=== PATIENT | female | born 1990 | race Caucasian/White ===

== ENCOUNTER 2017-05-03 12:40 | Inpatient (IN) | payer OTHER ==
[~2017-05-03 12:40] MED LIST: CITRIC ACID/SODIUM CITRATE 30 ML UNIT-DOSE CUP PO ONE; ELECTROLYTE-148 SOLN 1,000 ML IV ONE
[2017-05-03 13:29] VITALS: BMI 28.3
[2017-05-03] MEDS: ELECTROLYTE-148 SOLN 1,000 ML IV SCH (14:00)
[2017-05-03] MEDS ORDERED: BENZOCAINE 20% 57 GM BOTTLE TP PRN (14:56)
[2017-05-03] MEDS ORDERED: IBUPROFEN 800 MG/8 ML IJ IVPB PRN (14:56)
[2017-05-03] MEDS ORDERED: METHYLERGONOVINE MALEATE 0.2 MG/1 ML AMP IM PRN (14:56)
[2017-05-03] MEDS ORDERED: WITCH HAZEL 50% (TUCKS) 40 PAD/JAR PAD TP PRN (14:56)
[2017-05-03] MEDS ORDERED: diphenhydrAMINE HCL 25 MG CAPSULE (FP) PO PRN (14:56)
[2017-05-03] MEDS ORDERED: BENZOCAINE 28 GM HEMORRHOIDAL OINTMENT PR PRN (14:56)
[2017-05-03] MEDS ORDERED: OXYTOCIN 20 UNITS in 0.9% NS 1,000 ML IV SCH (15:00)
[2017-05-03 15:04] LABS: URINE MARIJUANA THC NEGATIVE ng/ml (CUTOFF=50)
--- NOTE | 2017-05-03 15:06 | HP ---
Past Medical History - Primary Care Physician PCP:: Jimbo Tate - Admission Chief Complaint: 39,4 weeks, previous c/s , request of c/s History of Present Illness: 27 yo f , edc 05/06/17 with 2 previous c/s . request of repeat c/s. rba discussed History Source: Patient Limitations to Obtaining History: No Limitations - Past Medical History Pulmonary: Yes: Asthma ...: 5 ...Para: 2 ...Term: 2 ...: 0 ...Spon : 2 ...Induced : 0 ...Multiple Gestation: 0 ...LMP: 07/30/16 ... Weeks Gestation by Dates: 39.4 ...EDC by Dates: 05/06/17 Additional OB History: 2 previous c/s and 2 spont ab - Past Surgical History Hx Myomectomy: No Hx Transabdominal Cerclage: No - Smoking History Smoking history: Never smoked Have you smoked in the past 12 months: No Aproximately how many cigarettes per day: 0 - Alcohol/Substance Use Hx Alcohol Use: No - Social History Usual Living Arrangement: Yes: With Spouse History of Recent Travel: No Home Medications - Allergies Allergies/Adverse Reactions: Allergies Allergy/AdvReac Type Severity Reaction Status Date / Time Sulfa (Sulfonamide Allergy Severe Rash Verified 05/03/17 13:29 Antibiotics) [Sulfa(Sulfonamide Antibiotics)] - Home Medications Home Medications: Ambulatory Orders Vit No.130/Iron/FA [ Vitamins] 1 each PO DAILY 03/12/17 Review of Systems - Review of Systems Constitutional: reports: No Symptoms Eyes: reports: No Symptoms HENT: reports: No Symptoms Neck: reports: No Symptoms Cardiovascular: reports: No Symptoms Respiratory: reports: No Symptoms Gastrointestinal: reports: No Symptoms Genitourinary: reports: No Symptoms Breasts: reports: No Symptoms Reported Musculoskeletal: reports: No Symptoms Integumentary: reports: No Symptoms Physical Exam - Maternity Vital Signs: Vital Signs Temperature 98.2 F 05/03/17 13:15 Pulse Rate 101 H 05/03/17 13:15 Respiratory Rate 18 05/03/17 13:15 Blood Pressure 110/65 05/03/17 13:15 O2 Sat by Pulse Oximetry (%) - Abdominal Exam/OB Number of Fetuses: Single Presentation: Vertex Contractions: No Regularity: Irregular Intensity: Unaware Monitor Mode: External Heart Rate Location: [facility] Category: I Accelerations: Uniform Decelerations: None - Vaginal Exam/OB Vaginal Bleediing: No Speculum Exam: No Dilatation (cm): closed Effacement (%): none Amniotic Membrane Status: Intact Presentation: Vertex/Position Station: -3 - Physical Exam Edema: LLE: Trace, RLE: Trace Deep Tendon Reflex Grade: Normal +2 Hemorrhage Risk Assessment - Risk Factors High Risk Factors: Yes: None Risk Score: 0 Risk Level: Low Risk Problem List - Problems (1) Previous section complicating Code(s): O34.219 - MATERNAL CARE FOR UNSP TYPE SCAR FROM PREVIOUS DEL Assessment/Plan for repeat c/s ,risks discussed
[2017-05-03] MEDS ORDERED: ONDANSETRON 4 MG/2 ML VIAL IVPB PRN (15:19)
--- NOTE | 2017-05-03 16:16 | OP ---
DATE OF OPERATION: 05/03/2017 PREOPERATIVE DIAGNOSIS: , 39.4 weeks gestation; previous section, requests a repeat section. POSTOPERATIVE DIAGNOSIS: , 39.4 weeks gestation; previous section, requests a repeat section. PROCEDURE: Repeat low-segment transverse section. SURGEON: Nanette Tate MD MEDICAL RECORD LIBRARIAN: SARA Cárdenas ANESTHESIA: Spinal. ANESTHESIOLOGIST: Danuta Singleton MD ESTIMATED BLOOD LOSS: 500 mL FINDING: A live baby boy, ROT position, cord around the neck x1. DESCRIPTION OF OPERATION: Patient was taken to the operating room. Under adequate spinal anesthesia, abdomen and perineum were prepped and draped. Pfannenstiel abdominal skin incision was made. Abdominal wall was cut layer by layer until peritoneum was exposed and incised. Upon entering the abdominal cavity, lower uterine segment was identified and uterovesical fold of peritoneum established. Bladder was pushed down. Then, with the lower blade of the [place] retractor in the pelvis, a low transverse uterine incision was made. The incision extended laterally. Amniotic sac was entered, clear fluid. Head delivered. Nasopharynx was suctioned. Cord around the neck x1 reduced. Then, live baby was delivered without any difficulty. Placenta was delivered manually. Uterine cavity was cleaned out of remaining tissue. Then, uterine incision was closed in 2 layers, first layer with 0 Biosyn continuous suture, the second layer with 0 Biosyn imbricating the first layer. Bladder flap was closed with 0 Biosyn continuous suture. Both tubes and ovaries were checked, were normal. No active bleeding was seen. All the lap pads, sponge, and instrument counts were correct. Then, peritoneum was closed with 0 Biosyn continuous suture. Fascia was closed with 0 Biosyn continuous suture. Subcutaneous fat was brought together with interrupted suture of 0 Biosyn, and the skin was closed with pretty. Patient tolerated the procedure well, left the OR in good condition. NANETTE TATE M.D. [id number]
[2017-05-03] MEDS ORDERED: CEFAZOLIN (PRE-DOCKED) 50 ML IVPB SCH (18:00)
[2017-05-03] MEDS: CEFAZOLIN (PRE-DOCKED) 50 ML IVPB SCH (22:01)
[2017-05-03] MEDS ORDERED: DEXTROSE 5%-LACTATED RINGERS 1,000 ML IV SCH (23:00)
--- NOTE | 2017-05-04 07:37 | PN ---
Progress Note (short form) - Note Progress Note: pod 1 s/p repeat c/s doing well, has mild cramps Last Vital Signs Temp Pulse Resp BP Pulse Ox 97.6 F 66 18 99/50 100 05/04/17 06:00 05/04/17 06:00 05/04/17 06:00 05/04/17 06:00 05/03/17 16:25 abdomen soft, no distension, no cva incision dry, clean no calf tenderness plan ambulate, cbc, advance diet Problem List - Problems (1) Previous section complicating Code(s): O34.219 - MATERNAL CARE FOR UNSP TYPE SCAR FROM PREVIOUS DEL
[2017-05-04] MEDS: IBUPROFEN 600 MG TABLET (FP) PO PRN ×3 (07:46→19:53)
[2017-05-04] MEDS: ACETAMINOPHEN 325 MG TABLET (FP) PO PRN ×3 (07:47→19:53)
[2017-05-04 08:28] LABS: BASOPHIL 0.3 % (0-2.0); EOSINOPHIL 0.9 % (0-4.5); MCH 32.5 pg (25.7-33.7); MCHC 33.9 g/dl (32.0-36.0); MEAN PLT VOLUME 7.8 fl (7.5-11.1); NEUTROPHILS 72.8 % (42.8-82.8); PLATELET COUNT 233 K/MM3 (134-434); RDW 13.6 % (11.6-15.6); WHITE BLOOD COUNT 9.9 K/mm3 (4.0-10.0)
--- NOTE | 2017-05-04 08:51 | PN ---
Progress Note (short form) - Note Progress Note: Anesthesia/pain Pt seen and examined S:alert and awake O: Vital Signs Temperature 97.6 F 05/04/17 06:00 Pulse Rate 66 05/04/17 06:00 Respiratory Rate 20 05/04/17 07:57 Blood Pressure 99/50 05/04/17 06:00 O2 Sat by Pulse Oximetry (%) 100 05/03/17 16:25 CBC, BMP 05/04/17 07:00 A/P:Current Active Problems with 39 completed weeks gestation (Acute) Previous section complicating (Acute) s/p c section Doing well post op. Comfortable Continue current care Marco Antonio Hanna MD
[2017-05-04] MEDS: CEFAZOLIN (PRE-DOCKED) 50 ML IVPB SCH ×2 (09:26→17:23)
[2017-05-04] MEDS: ENOXAPARIN NA (PORCINE) 40 MG/0.4 ML DISP.SYRIN SQ SCH (09:26)
[2017-05-04] MEDS: ELECTROLYTE-148 SOLN 1,000 ML IV SCH (14:21)
[2017-05-04] MEDS: SIMETHICONE 80 MG TAB.CHEW (FP) PO PRN ×2 (14:25→19:53)
[2017-05-04] MEDS ORDERED: BISACODYL 10 MG SUPP.RECT PR PRN (14:56)
[2017-05-05] MEDS: SIMETHICONE 80 MG TAB.CHEW (FP) PO PRN ×4 (00:13→20:28)
[2017-05-05] MEDS: ACETAMINOPHEN 325 MG TABLET (FP) PO PRN ×4 (00:13→20:29)
[2017-05-05] MEDS: oxyCODONE HCL 5 MG TABLET PO PRN ×4 (00:14→20:28)
--- NOTE | 2017-05-05 01:54 | PN ---
Post Progress Note Post Day: 2 Type of Delivery: Repeat C/S Vital Signs: Vital Signs Temperature 98.2 F 05/04/17 22:00 Pulse Rate 72 05/04/17 22:00 Respiratory Rate 18 05/04/17 22:00 Blood Pressure 105/65 05/04/17 22:00 O2 Sat by Pulse Oximetry (%) 100 05/03/17 16:25 Uterus: Yes: Fundus Firm Incision: Yes: Dressing dry and intact Abdomen/GI: Yes: Abdomen soft Lochia: Yes: Rubra Lochia, amount: Small Extremities: Yes: Calves non-tender Perineum: Yes: Intact Activity: Ambulating - Labs Labs: CBC WBC 9.9 K/mm3 (4.0-10.0) 05/04/17 07:00 RBC 3.47 M/mm3 (3.60-5.2) L 05/04/17 07:00 Hgb 11.3 GM/dL (10.7-15.3) 05/04/17 07:00 Hct 33.3 % (32.4-45.2) 05/04/17 07:00 MCV 96.0 fl (80-96) 05/04/17 07:00 MCH 32.5 pg (25.7-33.7) 05/04/17 07:00 MCHC 33.9 g/dl (32.0-36.0) 05/04/17 07:00 RDW 13.6 % (11.6-15.6) 05/04/17 07:00 Plt Count 233 K/MM3 (134-434) 05/04/17 07:00 MPV 7.8 fl (7.5-11.1) 05/04/17 07:00 Neutrophils % 72.8 % (42.8-82.8) 05/04/17 07:00 Lymphocytes % 18.8 % (8-40) D 05/04/17 07:00 Monocytes % 7.2 % (3.8-10.2) 05/04/17 07:00 Eosinophils % 0.9 % (0-4.5) 05/04/17 07:00 Basophils % 0.3 % (0-2.0) 05/04/17 07:00 Assessment/Plan oob await swab results continue care
[2017-05-05] MEDS: ENOXAPARIN NA (PORCINE) 40 MG/0.4 ML DISP.SYRIN SQ SCH (09:19)
[2017-05-05] MEDS ORDERED: SENNOSIDES/DOCUSATE COMBO (SENNA PLUS) TABLET (UD) PO PRN (22:00)
[2017-05-06] MEDS: SIMETHICONE 80 MG TAB.CHEW (FP) PO PRN (00:58)
[2017-05-06] MEDS: oxyCODONE HCL 5 MG TABLET PO PRN (00:58)
--- NOTE | 2017-05-06 05:39 | PN ---
Post Progress Note Post Day: 3 Type of Delivery: Repeat C/S Vital Signs: Vital Signs Temperature 98.2 F 05/05/17 20:19 Pulse Rate 96 H 05/05/17 20:19 Respiratory Rate 20 05/05/17 20:19 Blood Pressure 114/63 05/05/17 20:19 O2 Sat by Pulse Oximetry (%) 100 05/03/17 16:25 Breast Exam: Yes: Soft Uterus: Yes: Fundus Firm Incision: Yes: Natali intact Abdomen/GI: Yes: Abdomen soft Lochia: Yes: Rubra Lochia, amount: Small Extremities: Yes: Calves non-tender Perineum: Yes: Intact Activity: Ambulating - Labs Labs: CBC WBC 9.9 K/mm3 (4.0-10.0) 05/04/17 07:00 RBC 3.47 M/mm3 (3.60-5.2) L 05/04/17 07:00 Hgb 11.3 GM/dL (10.7-15.3) 05/04/17 07:00 Hct 33.3 % (32.4-45.2) 05/04/17 07:00 MCV 96.0 fl (80-96) 05/04/17 07:00 MCH 32.5 pg (25.7-33.7) 05/04/17 07:00 MCHC 33.9 g/dl (32.0-36.0) 05/04/17 07:00 RDW 13.6 % (11.6-15.6) 05/04/17 07:00 Plt Count 233 K/MM3 (134-434) 05/04/17 07:00 MPV 7.8 fl (7.5-11.1) 05/04/17 07:00 Neutrophils % 72.8 % (42.8-82.8) 05/04/17 07:00 Lymphocytes % 18.8 % (8-40) D 05/04/17 07:00 Monocytes % 7.2 % (3.8-10.2) 05/04/17 07:00 Eosinophils % 0.9 % (0-4.5) 05/04/17 07:00 Basophils % 0.3 % (0-2.0) 05/04/17 07:00 Assessment/Plan as above oob ereg diet see on sunday for staple removal
[2017-05-06 08:26] LABS: BASOPHIL 0.6 % (0-2.0); EOSINOPHIL 3.1 % (0-4.5); MCH 32.6 pg (25.7-33.7); MCHC 33.9 g/dl (32.0-36.0); MEAN CELL VOLUME 96.2 fl (80-96); MEAN PLT VOLUME 7.6 fl (7.5-11.1); PLATELET COUNT 274 K/MM3 (134-434); RDW 13.8 % (11.6-15.6); WHITE BLOOD COUNT 8.9 K/mm3 (4.0-10.0)
[2017-05-06] MEDS: ENOXAPARIN NA (PORCINE) 40 MG/0.4 ML DISP.SYRIN SQ SCH (09:27)
[2017-05-06 10:17] VITALS: BP 101/63; PULSE 85; TEMP 98
--- NOTE | 2017-05-08 06:08 | DS ---
Physical Exam-[facility] Vital Signs: Vital Signs Temperature 98 F 05/06/17 10:00 Pulse Rate 85 05/06/17 10:00 Respiratory Rate 20 05/06/17 10:00 Blood Pressure 101/63 05/06/17 10:00 O2 Sat by Pulse Oximetry (%) 100 05/03/17 16:25 Constitutional: Yes: Well Nourished, No Distress, Calm Eyes: Yes: WNL, Conjunctiva Clear, EOM Intact HENT: Yes: WNL, Atraumatic, Normocephalic Neck: Yes: WNL, Supple, Trachea Midline Cardiovascular: Yes: WNL, Regular Rate and Rhythm Respiratory: Yes: WNL, Regular, CTA Bilaterally Gastrointestinal: Yes: WNL ...Rectal Exam: Yes: WNL Renal/: Yes: WNL ....Post : Yes: Uterus firm, Uterus non-tender, Slight lochia rubra Breast(s): Yes: WNL Musculoskeletal: Yes: WNL Extremities: Yes: WNL Edema: Yes Edema: LLE: Trace, RLE: Trace Integumentary: Yes: WNL Neurological: Yes: WNL, Alert, Oriented ...Motor Strength: WNL Psychiatric: Yes: WNL, Alert, Oriented Labs: CBC, BMP 05/06/17 07:30 Delivery - Delivery Section: Repeat, Low Flap Transverse (no complication) Type of Anesthesia: Spinal Episiotomy/Laceration: None EBL (cc): 500 Delivery, Single - Stages of Labor Date of Delivery: 05/03/17 Time of Delivery: 14:30 Time Placenta Delivered: 14:31 Placenta: Yes: Manual Removal - Condition of Slip Dumper/Budget Technician Present: Yes Name: Danuta Singleton Infant Gender: Male Weight: 7 lb 14 oz Position: Right, OT Total Hours ROM (Hrs/Mins): 0/2 - 1 Minute Total Score: 9 5 Minutes Total Score: 9 - [place] Feeding Plan Initial Plan: Elected not to breastfeed exclusively throughout hospitalization Discharge Summary Reason For Visit: REPEAT C SECTION Procedures: Principal: repeat LST c/s Hospital Course: uneventful Condition: Good - Instructions Diet, Activity, Other Instructions: see on sunday for staple removal Referrals: Jimbo Tate MD [Staff Physician] - Disposition: HOME - Home Medications Comprehensive Discharge Medication List: Ambulatory Orders Vit No.130/Iron/FA [ Vitamins] 1 each PO DAILY 03/12/17
--- NOTE | 2017-05-08 14:49 | PATH ---
Surgical Pathology Report Patient Name: ZA LIEBERMAN I. [facility]. Rec. #: [id number] /Age/Gender: 1990 (Age: 27) / F Account: [id number] Location: [facility] OBS/WRITER TECHNICAL PUBLICATIONS Taken: 05/03/2017 Received: 05/04/2017 Reported: 05/08/2017 Physicians: Jimbo Tate M.D. Specimen(s) Received PLACENTA Clinical History , cervical polyp Asthma-last attack years ago Ear surgery (age 4), 12/2010, 01/2013 Final Diagnosis PLACENTA, DELIVERY: FOCALLY DISRUPTED THIRD TRIMESTER PLACENTA WITH THREE VESSEL UMBILICAL CORD AND UNREMARKABLE PLACENTAL MEMBRANES. Electronically Signed Dennis Gabriel M.D. Gross Description The specimen is received fresh labeled placenta and is a 541 gram, 17.5 x 16.0 x 3.3 cm. placenta with attached membranes and umbilical cord. The attached membranes are bowling, translucent with focal opacities and insert marginally. The umbilical cord measures 44 cm. in length and averages 1.2 cm. in diameter. The cord inserts eccentrically, 5.5 cm. to the nearest margin. No true knots or strictures are identified. Cut surface of the umbilical cord reveals 3 vessels. The surface is [place]-blue with minimal fibrin deposition and appropriate caliber vessels. The maternal surface is red-brown with focal defects. Sectioning reveals red-brown, spongy parenchyma. No lesions are identified. Feeder Catcher sections are submitted in three cassettes as follows: 1- membrane rolls and umbilical cord; 2-3- full thickness sections of placenta. 05/07/2017 [facility]05/07/2017
== END 2017-05-06 12:00 | disposition home or self-care (01) | DRG 540 ==
LOC: JLDR 12:40 → J3W 16:50
PROVIDERS: ADMIT Obstetrics & Gynecology; ATTEND Obstetrics & Gynecology
PROC: 10D00Z1 Extraction of Products of Conception, Low, Open Approach (ICD-10-PCS; principal; 2017-05-03)
DX: O34.211 Maternal care for low transverse scar from previous cesarean delivery (principal); N85.8 Other specified noninflammatory disorders of uterus; Z3A.39 39 weeks gestation of pregnancy; Z37.0 Single live birth
CPT/HCPCS: 36415; 80307; 85025; 87081; 88307-TC

== ENCOUNTER 2018-04-29 21:15 | Emergency (ER) | payer OTHER ==
--- NOTE | 2018-04-29 21:25 | PDOC ---
Rapid Medical Evaluation Chief Complaint: Headache Time Seen by Provider: 04/29/18 21:21 Medical Evaluation: Allergies Allergy/AdvReac Type Severity Reaction Status Date / Time Sulfa (Sulfonamide Allergy Severe Rash Verified 05/03/17 13:29 Antibiotics) [Sulfa(Sulfonamide Antibiotics)] 04/29/18 21:21 c/o headache and head pressure x 1 week. usually headache is relieved with Excedrin. denies pain reliever today Pe: patient alert ox3. A: headache P: ua urine tylenol patient to ER for further management of care. Discharge Disposition - Diagnosis Headache Qualifiers: Headache type: unspecified Headache chronicity pattern: unspecified pattern Intractability: not intractable Qualified Code(s): R51 - Headache - Referrals - Patient Instructions - Post Discharge Activity
[2018-04-29] MEDS ORDERED: ACETAMINOPHEN 500 MG TABLET (FP) ONE ×2 (21:26→21:29)
[2018-04-29] MEDS: ACETAMINOPHEN 325 MG TABLET (FP) PO ONE ×2 (21:27→21:38)
[2018-04-29 21:37] VITALS: BP 126/69; PULSE 98; TEMP 98.6; BMI 25.6
[2018-04-29] MEDS ORDERED: ACETAMINOPHEN 500 MG TABLET (FP) PO ONE (21:37)
[2018-04-29 22:14] LABS: URINE APPEARANCE CLEAR; URINE BILIRUBIN NEGATIVE (<2.0 mg/dL); URINE COLOR LTYELLOW; URINE GLUCOSE (UA) NEGATIVE (NEGATIVE); URINE KETONE NEGATIVE (NEGATIVE); URINE LEUK ESTERASE NEGATIVE (NEGATIVE); URINE NITRITE NEGATIVE (NEGATIVE); URINE PROTEIN NEGATIVE (NEGATIVE); URINE UROBILINOGEN NEGATIVE mg/dL (0.2-1.0)
[2018-04-29 22:18] LABS: HCG,QUALITATIVE URINE NEGATIVE
[2018-04-29 22:22] LABS: URINE MUCUS RARE
[2018-04-29] MEDS ORDERED: IBUPROFEN 600 MG TABLET (FP) PO STA (23:27)
[2018-04-29] MEDS ORDERED: CYCLOBENZAPRINE HCL 10 MG TABLET (FP) PO ONE (23:27)
--- NOTE | 2018-04-29 23:54 | PDOC ---
Attending Attestation - [facility] HPI: 04/30/18 00:00 The patient is a 28 year old female with significant past medical history of R. breast tumor and asthma presents to the emergency department with a headache. The patient presents with L. sided headache accompanied with neck pain for the past 1 month. The patient states the pain been progressively worsening, states in the past the pain was resolved with Tylenol and Excedrin, denies relief today. The patient reports following up at the urgency care [facility], who referred her to the ED. Denies following up with doctor. The patient reports associated concern of mild nausea and lightheadedness. Denies fever, chills, or a cough. Denies nausea or vomiting. Denies urinary or bowel symptoms. Allergies: Sulfa Social history: None reported. PCP: None reported. - Physicial Exam PE: 04/30/18 01:26 General: Appearance: Yes: Appropriately Dressed. No: Apparent Distress, Intoxicated HEENT: positive: EOMI, NGHIA, Normal ENT Inspection, Normal Voice, TMs Normal, Pharynx Normal. negative: Pale Conjunctivae, Photophobia, Scleral Icterus (R), Scleral Icterus (L) Neck: positive: Trachea midline, Normal Thyroid, Supple. negative: Tender, Rigid, Carotid bruit, Stridor, Lymphadenopathy (R), Lymphadenopathy (L), Thyromegaly Respiratory/Chest: positive: Lungs Clear, Normal Breath Sounds. negative: Chest Tender, Respiratory Distress, Accessory Muscle Use, Labored Respiration, RES, Crackles, Rales, Rhonchi, Stridor, Wheezing, Dullness Cardiovascular: positive: Regular Rhythm, Regular Rate, S1, S2. negative: Edema , JVD, Murmur, Bradycardia, Tachycardia Vascular Pulses: Dorsalis-Pedis (R): 2+, Doralis-Pedis (L): 2+ Gastrointestinal/Abdominal: positive: Normal Bowel Sounds, Flat, Soft. negative : Tender, Organomegaly, Pulsatile Mass, Increased Bowel Sounds, Decreased BS, Distended, Guarding, Rebound, Hernia, Hepatomegaly, Spleenomegaly Lymphatic: negative: Adenopathy, Tenderness Musculoskeletal: positive: Normal Inspection. negative: CVA Tenderness, Decreased Range of Motion Extremity: positive: Normal Capillary Refill, Normal Inspection, Normal Range of Motion, Pelvis Stable. negative: Tender, Pedal Edema, Swelling, Erythema Integumentary: positive: Normal Color, Dry, Warm. negative: Cyanotic, Erythema , Jaundice, Rash Neurologic: positive: strategic debriefing specialist II-XII NML intact, Fully Oriented, Alert, Normal Mood/ Affect, Motor Strength 5/5. negative: EOM Palsy, Facial Droop, Sensory Deficit - Medical Decision Making 04/30/18 00:00 Documentation prepared by Valerie Banegas, acting as medical practitioners for Montez Casisdy MD. <Valerie Banegas - Last Filed: 04/30/18 01:26> - Resident Resident Name: Stephie Flores - ED Attending Attestation I have performed the following: I have examined & evaluated the patient, The case was reviewed & discussed with the resident, I agree w/resident's findings & plan, Exceptions are as noted - Physicial Exam PE: 04/30/18 01:23 physical exam physical exam - Medical Decision Making 04/30/18 19:46 Pt treated and released <Montez Cassidy - Last Filed: 04/30/18 19:46> Discharge Disposition <Valerie Banegas - Last Filed: 04/30/18 01:26> - Discharge Dispostion Last Admission D/C Date: 05/06/17 Decision to Admit order: No <Montez Cassidy - Last Filed: 04/30/18 19:46> - Diagnosis Headache Qualifiers: Headache type: unspecified Headache chronicity pattern: unspecified pattern Intractability: not intractable Qualified Code(s): R51 - Headache - Discharge Dispostion Disposition: HOME Condition at time of disposition: Stable - Prescriptions Prescriptions: Ibuprofen 600 mg PO TID #30 tablet Methocarbamol [Robaxin -] 500 mg PO TID #30 tablet - Referrals Referrals: Humberto Corona MD [Staff Physician] - - Patient Instructions Printed Discharge Instructions: DI for Headache Additional Instructions: take medication as directed. Follow up with the doctor referred to you in the ER if symptoms don't improve
--- NOTE | 2018-04-29 23:56 | PDOC ---
History of Present Illness - General Chief Complaint: Headache Stated Complaint: NECK PAIN Time Seen by Provider: 04/29/18 21:21 - History of Present Illness Initial Comments: 04/29/18 23:47 Caroline Rangel is a 28yo otherwise healthy woman who presents with a left- sided neck and posterior head ache for the past month. She reports that the pain began as discomfort in her neck and spread up the left side of her head. Occasionally she has pain around her left ear and forward to her left taoist, but generally there is the most pain at the base of the head. The pain is located only on the left. She describes it as an 8/10 "discomfort." Turning her head to the far left or right worsens the pain. She has not found anything that relieved her pain. Ms Rangel has not seen a doctor over the past month. She decided to go to urgent care today because she felt the pain was a little worse today, and she had slight nausea and felt a little lightheaded earlier today. She also complains about occasional skin itching that occurs occasionally across her body. She notes that if she scratches the areas that itch, they become somewhat swollen. These symptoms resolve on their own. Ms Rangel reports a history of asthma but no symptoms currently. She does not have any allergies that she knows of. Ms Rangel denies any fevers, chills, nausea/vomiting, change in bowel habits, urinary symptoms, or other related symptoms. Past History - Past Medical History Allergies/Adverse Reactions: Allergies Allergy/AdvReac Type Severity Reaction Status Date / Time Sulfa (Sulfonamide Allergy Severe Rash Verified 05/03/17 13:29 Antibiotics) [Sulfa(Sulfonamide Antibiotics)] Home Medications: Ambulatory Orders Vit No.130/Iron/Folic [ Vitamins] 1 each PO DAILY 03/12/17 Ibuprofen 600 mg PO TID #30 tablet 04/30/18 Methocarbamol [Robaxin -] 500 mg PO TID #30 tablet 04/30/18 Asthma: Yes (last attack years ago) Cancer: No Cardiac Disorders: No COPD: No DVT: No Diabetes: No HTN: No Seizures: No Thyroid Disease: No Other medical history: r breast turmor - Reproductive History (#): 5 Para: 3 Therapeutic (s) & number: No Spontaneous : 2 - Immunization History Td Vaccination: Yes Immunization Up to Date: Yes - Suicide/Smoking/Psychosocial Hx Smoking Status: No Smoking History: Never smoked Have you smoked in the past 12 months: No Number of Cigarettes Smoked Daily: 0 Information on smoking cessation initiated: No Hx Alcohol Use: Yes (socially) Drug/Substance Use Hx: No Substance Use Type: None Hx Substance Use Treatment: No Review of Systems - Review of Systems Comments:: General: No fevers, no chills, no weight or appetite change, no malaise HEENT: No changes in vision, no changes in hearing, no congestion, no sore throat CV: No chest pain, no palpitations, no LE edema Pulm: No SOB, no cough, no wheezing GI: No nausea or vomiting, no change in bowel habits, no melena : No frequency, no urgency, no dysuria Musc: No back pain, no joint swelling, no recent injury Skin: No rash, no lesions, no erythema Endo: No excessive thirst, no heat/cold intolerance Heme: No unusual bruising or bleeding, no swollen glands Neuro: No syncope, no numbness/tingling, no focal weakness Vasc: No claudication Psych: No recent change in mood, no SI or HI *Physical Exam - Vital Signs Last Vital Signs Temp Pulse Resp BP Pulse Ox 98.6 F 98 H 20 126/69 100 04/29/18 21:22 04/29/18 21:22 04/29/18 21:22 04/29/18 21:22 04/29/18 21:22 - Physical Exam Comments: General: Comfortable, no acute distress HEENT: PERRL, EOMI, MMM, voice normal, normal neck ROM, no LAD. Posterior neck and left head nontender to palpation. No erythema or edema noted. Cards: RRR, no murmur appreciated Pulm: Comfortable on room air, clear to auscultation bilaterally Abd: Soft, nontender, nondistended : No CVA tenderness Ext: Atraumatic. No LE edema. ROM intact. Strength 5/5 and equal bilaterally Vasc: Extremities WWP. Palpable radial and pedal pulses bilaterally Neuro: A&Ox3, CN grossly intact, normal speech, motor/sensory grossly intact and symmetric Psych: Mood appropriate to situation ED Treatment Course - ADDITIONAL ORDERS Additional order review: Laboratory Results 04/29/18 21:48 Urine Color Ltyellow Urine Appearance Clear Urine pH 7.0 Ur Specific [place] 1.016 Urine Protein Negative Urine Glucose (UA) Negative Urine Ketones Negative Urine Blood 2+ H Urine Nitrite Negative Urine Bilirubin Negative Urine Urobilinogen Negative Ur Leukocyte Esterase Negative Urine WBC (Auto) None Urine RBC (Auto) 11 Urine Mucus Rare Urine HCG, Qual Negative - Medications Given in the ED: ED Medications Discontinued Medications Generic Name Dose Route Start Last Admin Trade Name Raghavendra PRN Reason Stop Dose Admin Acetaminophen 975 mg 04/29/18 21:24 04/29/18 21:38 Tylenol - PO 04/29/18 21:25 Not Given ONCE ONE Acetaminophen 1,000 mg 04/29/18 21:37 04/29/18 21:38 Tylenol - PO 04/29/18 21:38 1,000 mg ONCE ONE Administration Medical Decision Making - Medical Decision Making 04/29/18 23:57 Caroline Rangel is an otherwise healthy 28yo woman who presents complaining of left posterior neck and posterior head discomfort for one month. She presented today because she felt that the pain needed to be evaluated, and she was told at urgent care that they could not complete the evaluation. - UA and urine test completed in triage; no concerns, not - 1g acetaminophen given without improvement in symptoms - 600mg ibuprofen and 5mg flexeril ordered - Pain is most likely musculoskeletal. There are no red flag symptoms, no s/s of infection, no neck stiffness, no neurological symptoms. - As the pain has been present for 1 month, will get CT head to r/o pathology. 04/30/18 01:40 - CT without acute pathology - Some improvement with medications - Will discharge home with prescriptions for ibuprofen and methocarbamol - Should set up care with a PCP. Will give referral *DC/Admit/Observation/Transfer Diagnosis at time of Disposition: Headache Qualifiers: Headache type: unspecified Headache chronicity pattern: unspecified pattern Intractability: not intractable Qualified Code(s): R51 - Headache - Discharge Dispostion Disposition: HOME Condition at time of disposition: Stable - Prescriptions Prescriptions: Ibuprofen 600 mg PO TID #30 tablet Methocarbamol [Robaxin -] 500 mg PO TID #30 tablet - Referrals Referrals: Humberto Corona MD [Staff Physician] - - Patient Instructions Printed Discharge Instructions: DI for Headache Additional Instructions: take medication as directed. Follow up with the doctor referred to you in the ER if symptoms don't improve - Post Discharge Activity
[2018-04-30] MEDS ORDERED: IBUPROFEN 600 MG TABLET (FP) PO ONE (00:14)
[2018-04-30] MEDS ORDERED: CYCLOBENZAPRINE HCL 10 MG TABLET (FP) ONE (00:14)
== END 2018-04-30 01:53 | disposition home or self-care (01) ==
LOC: JER 21:15
DX: R51 Headache (principal); J45.909 Unspecified asthma, uncomplicated
CPT/HCPCS: 70450-TC; 81003; 81015; 84703; 99281-25